=== PATIENT | female | born 1965 | race Caucasian/White ===

== ENCOUNTER → 2016-10-30 | Outpatient (CLI) | payer MEDICAID ==
[~2016-10-30] MED LIST: BACL-19 PO; BUPR100T6 PO; GABA600T2 PO; LISI2.5T PO; ONDA4TAB7 PO; OXYC-223 PO
== END | disposition home or self-care (01) ==
LOC: CFH 09:18
PROVIDERS: ATTEND Internal Medicine
DX: R05 Cough (principal)
CPT/HCPCS: 71020

== ENCOUNTER → 2018-02-11 | Outpatient (CLI) | payer MEDICAID ==
[~2018-02-11] MED LIST changes: +ALBU18HF INH; +ATOR10TA PO; +CITA10TA4 PO; +FLUT1BLS INH; +LISI5TAB7 PO; +MAGN400T7 PO; +MELO15TA24 PO; +METO25TA35 PO; -OXYC-223 PO; +OXYC-306 PO; +TOPI50TA8 PO
== END | disposition home or self-care (01) ==
LOC: CFH 10:31
PROVIDERS: ATTEND Neurological Surgery
DX: M16.0 Bilateral primary osteoarthritis of hip (principal)

== ENCOUNTER → 2018-11-04 | Outpatient (CLI) | payer MEDICAID ==
[~2018-11-04] MED LIST changes: -GABA600T2 PO; +GABA600T7 PO
== END | disposition home or self-care (01) ==
LOC: CFH 09:50
PROVIDERS: ATTEND Nurse Practitioner
DX: Z12.2 Encounter for screening for malignant neoplasm of respiratory organs (principal); Z87.891 Personal history of nicotine dependence
CPT/HCPCS: G0297

== ENCOUNTER 2019-05-30 15:02 | Emergency (ER) | payer MEDICAID ==
[~2019-05-30] VITALS: Ht 182.9 cm; Wt 123.3 kg
[~2019-05-30 15:02] MED LIST changes: -MAGN400T7 PO; +MAGN400T9 PO
[2019-05-30 15:43] VITALS: BP 130/90
--- NOTE | 2019-05-30 15:43 | NUR ---
PT HERE WITH C/O VB, STATES STARTED LAST NIGHT. PT STATES 2 PADS SINCE 7 AM. PT STATES IN MENOPAUSE. PT AAO X 4, NAD, ROOM AIR, CALL LIGHT WITHIN REACH. PT DRESSED IN GOWN AND PLACED ON MONITOR. MD AT BEDSIDE.
[2019-05-30 15:44] LABS: BASOPHILS # (AUTO) 0.03 x10^3/uL (0-0.1); BASOPHILS % (AUTO) 0 % (0-1); EOSINOPHILS # (AUTO) 0.07 x10^3/uL (0-0.4); EOSINOPHILS % (AUTO) 1 % (1-7); LYMPHOCYTES # (AUTO) 2.63 x10^3/uL (1-3.4); LYMPHOCYTES % (AUTO) 27 % (22-44); MD NO; MEAN CORPUSCULAR HEMOGLOBIN 30.8 pg (27.0-34.8); MEAN CORPUSCULAR VOLUME 93.3 fL (80-100); MEAN PLATELET VOLUME 9.2 fL (7.4-10.4); MONOCYTES # (AUTO) 0.71 x10^3/uL (0.2-0.8); MONOCYTES % (AUTO) 7 % (2-9); NEUTROPHILS # (AUTO) 6.35 x10^3/uL (1.8-6.8); NEUTROPHILS % (AUTO) 65 % (42-75); PLATELET COUNT 364 x10^3/uL (130-400); RED CELL DISTRIBUTION WIDTH 14.8 % (9.6-15.2)
[2019-05-30] MEDS ORDERED: TRAMADOL (15:46)
[2019-05-30] MEDS ORDERED: LYRICA (15:46)
[2019-05-30 15:48] LABS: ALBUMIN 3.9 g/dL (3.4-5.0); ANION GAP 5 mmol/L (5-15); CALCIUM 9.1 mg/dL (8.5-10.1); CHLORIDE 108 mmol/L (98-107)
[2019-05-30 15:54] LABS: INTERNATIONAL NORMALIZED RATIO 0.93 (0.93-1.1); PROTHROMBIN TIME 9.8 Seconds (9.6-11.5)
--- NOTE | 2019-05-30 16:16 | NUR ---
Patient/Caregiver given discharge instructions and they have confirmed that they understand the instructions. Patient ambulatory with steady gait.
== END 2019-05-30 16:28 | disposition home or self-care (01) ==
LOC: ED 16:00
DX: N93.8 Other specified abnormal uterine and vaginal bleeding (principal); I10 Essential (primary) hypertension; J44.9 Chronic obstructive pulmonary disease, unspecified; E66.01 Morbid (severe) obesity due to excess calories; Z68.36 Body mass index [BMI] 36.0-36.9, adult
CPT/HCPCS: 36415; 80048; 82040; 85025; 85610; 99283